=== PATIENT | female | born 1955 | race Caucasian/White ===

== ENCOUNTER 2017-09-10 19:24 | Emergency (ER) | payer OTHER ==
[~2017-09-10] VITALS: Ht 154.9 cm; Wt 59.0 kg
[~2017-09-10 19:24] MED LIST: EPIPEN 2-PAK1 MG/ML IM; LEVOTHYROXINE0.05 M1 PO; METOPROLOL SUCC25 MG PO; PREDNISONE 10MG10 M1 PO; PREDNISONE10 MG PO
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
[2017-09-10 21:17] VITALS: BP 148/79
== END 2017-09-10 21:18 ==
LOC: ERH 19:24
DX: T58.91XA Toxic effect of carbon monoxide from unspecified source, accidental (unintentional), initial encounter (principal)
CPT/HCPCS: 93005; 93010